=== PATIENT | male | born 1950 | race Caucasian/White ===

== ENCOUNTER 2018-08-22 09:44 | Inpatient (IN) | payer MEDICARE ==
[~2018-08-22] VITALS: Ht 172.7 cm; Wt 106.0 kg
[2018-08-22] MEDS ORDERED: normal saline 1000ml 1,000 ML IV ONE (10:54)
[2018-08-22] MEDS ORDERED: ondansetron/PF 4mg/2ml inj IV ONE ×2 (10:55→16:15)
[2018-08-22] MEDS: diatr meglu/diatrizoate 30ml oral sol.-(3 dose) bottle PO SCH ×3 (10:55→12:25)
[2018-08-22] MEDS ORDERED: normal saline 1000ML IV soln IVB ONE ×2 (10:55→13:20)
[2018-08-22] MEDS ORDERED: LIDOcaine 2% 10ml TOPICAL JELLY (Urojet) MM ONE (11:20)
[2018-08-22 11:23] LABS: BASOPHILS # (AUTO) 0.1 X10'3 (0-0.2); BASOPHILS % (AUTO) 0.5 % (0-1); EOSINOPHILS # (AUTO) 0.1 X10'3 (0-0.9); EOSINOPHILS % (AUTO) 0.9 % (0-6); HEMATOCRIT 43.3 % (42.0-52.0); HEMOGLOBIN 14.6 g/dl (14.0-17.9); LYMPHOCYTES # (AUTO) 1.1 X10'3 (1.1-4.8); LYMPHOCYTES % (AUTO) 7.4 % (21-51); MEAN CORPUSCULAR HEMOGLOBIN 29.5 PG (27.0-31.0); MEAN CORPUSCULAR HGB CONC 33.7 g/dL (33.0-36.5); MEAN CORPUSCULAR VOLUME 87.5 FL (78-98); MEAN PLATELET VOLUME 9.3 FL (7.4-10.4); MONOCYTES # (AUTO) 0.8 X10'3 (0-0.9); MONOCYTES % (AUTO) 5.6 % (2-12); NEUTROPHILS # (AUTO) 12.9 X10'3 (1.8-7.7); NEUTROPHILS % (AUTO) 85.6 % (42-75); PLATELET COUNT 225 X10'3 (140-440); RED BLOOD COUNT 4.95 X10'6 (4.70-6.10); RED CELL DISTRIBUTION WIDTH 14.7 % (11.5-14.5); WHITE BLOOD COUNT 15.1 X10'3 (4.5-11.0)
[2018-08-22] MEDS: morphine 2 MG/ML inj. syringe IV PRN ×2 (11:31→22:58)
[2018-08-22 11:46] LABS: PLATELET ESTIMATE NORMAL; TOTAL CELLS COUNTED 100
[2018-08-22 11:49] LABS: INR 1.1 INR; PARTIAL THROMBOPLASTIN TIME 30 SECONDS (22-32)
[2018-08-22 11:50] LABS: ALANINE AMINOTRANSFERASE 26 U/L (12-78); ALBUMIN 3.9 G/DL (3.4-5.0); ALBUMIN/GLOBULIN RATIO 1.1 (1.1-1.5); ALKALINE PHOSPHATASE 109 IU/L (46-116); ANION GAP 12 (8-16); ASPARTATE AMINO TRANSFERASE 21 U/L (10-37); BILIRUBIN,TOTAL 0.7 MG/DL (0.1-1.0); BLOOD UREA NITROGEN 22 MG/DL (7-18); CALCIUM 9.1 MG/DL (8.5-10.1); CHLORIDE 105 MMOL/L (99-107); CREATININE 1.16 MG/DL (0.60-1.10); GLUCOSE 135 MG/DL (70-104); LIPASE 64 U/L (73-393); MAGNESIUM 1.8 MG/DL (1.5-2.4); POTASSIUM 3.8 MMOL/L (3.5-5.1); SODIUM 139 MMOL/L (135-145); TOTAL CARBON DIOXIDE 22.3 MMOL/L (24-32); TOTAL PROTEIN 7.5 G/DL (6.4-8.2); eGFR 62 ML/MIN
[2018-08-22] MEDS ORDERED: iohexol 300mg/ml 100ml inj. ONE (12:16)
[2018-08-22] MEDS ORDERED: piperacillin/tazo 3.375gm/50ml 50 ML IV ONE (13:30)
[2018-08-22 13:44] LABS: COLOR,URINE YELLOW (Yellow); GLUCOSE, URINE NEGATIVE (Neg); KETONES,URINE 40 mg/dl (Neg); LEUKOCYTE ESTERASE ,URINE NEGATIVE (Neg); NITRITES, URINE NEGATIVE (Neg); OCCULT BLOOD,URINE NEGATIVE (Neg); PH,URINE 5.5 (4.8-8.0); PROTEIN,URINE TRACE mg/dl (Neg)
[2018-08-22 13:45] LABS: CLARITY,URINE CLEAR (Clear); UA COLLECTION TYPE CLN CATCH MIDSTREAM
[2018-08-22 13:54] LABS: BACTERIA,URINE FEW /HPF (Neg); RBC,URINE 0-2 /HPF (0-2); SQUAMOUS EPITHELIAL CELL,UR FEW /LPF (FEW); WBC,URINE 0-4 /HPF (0-4)
[2018-08-22] MEDS: normal saline 1000ml 1,000 ML IV SCH ×3 (13:58→23:58)
[2018-08-22] MEDS ORDERED: ondansetron/PF 4mg/2ml inj IV PRN (14:00)
[2018-08-22] MEDS ORDERED: HYDROcodone/acetaminophen 10/325mg tab PO PRN (14:00)
[2018-08-22] MEDS ORDERED: acetaminophen 325mg tablet PO PRN ×2 (14:00)
[2018-08-22] MEDS ORDERED: mag hydrox/Alum hydrox/simeth 30ml oral suspension PO PRN (14:00)
[2018-08-22] MEDS ORDERED: morphine 2 MG/ML inj. syringe IV PRN ×2 (14:00)
[2018-08-22] MEDS ORDERED: magnesium hydroxide 30ml (MOM) UD suspension PO PRN (14:00)
[2018-08-22] MEDS ORDERED: HYDROcodone/acetaminophen 5mg/325mg tablet PO PRN (14:00)
[2018-08-22] MEDS ORDERED: MOME13HF INH (15:41)
[2018-08-22] MEDS ORDERED: ASPI81TA52 PO (15:41)
[2018-08-22] MEDS ORDERED: FLUT15.815 (15:41)
[2018-08-22] MEDS ORDERED: MELA3TAB PO (15:41)
[2018-08-22] MEDS ORDERED: AMLO5TAB PO (15:41)
[2018-08-22] MEDS ORDERED: LORA-641 PO (15:41)
[2018-08-22] MEDS ORDERED: IBUP-1984 PO (15:41)
[2018-08-22] MEDS ORDERED: LABE100T5 PO (15:41)
[2018-08-22] MEDS ORDERED: GABA-532 PO (15:41)
[2018-08-22] MEDS ORDERED: metoclopramide 5 mg/ml inj IV PRN (16:15)
[2018-08-22] MEDS ORDERED: budesonide 0.5mg/2ml UD nebule IH PRN (16:15)
--- NOTE | 2018-08-22 17:55 | NUR ---
Pt received to room 345B via . Oriented to room. NG to LIS. Report given to Mary DAVIDSON.
--- NOTE | 2018-08-22 19:10 | NUR ---
DR. Bradshaw paged regarding Klv210/92. MD is garcia orders to resume home BP medications. Give 5 mg PO norvasc now, and to resume home night medications. Will continue with care.
[2018-08-22] MEDS ORDERED: amLODIPine 5mg tablet PO ONE (19:30)
[2018-08-22 20:00] VITALS: BP 201/92
[2018-08-22] MEDS: gabapentin 300mg capsule PO SCH (20:00)
[2018-08-22] MEDS: ibuprofen tablet 400 MG TABLET PO SCH (20:00)
[2018-08-22] MEDS: Melatonin 3mg tablet PO SCH (20:34)
[2018-08-22] MEDS ORDERED: labetalol 100mg tablet PO SCH (21:00)
[2018-08-22 21:30] VITALS: BP 173/85
[2018-08-23] VITALS: BP 198/89
[2018-08-23 02:00] VITALS: BP 149/61
--- NOTE | 2018-08-23 02:00 | NUR ---
Current BP-149/61 hr-72
[2018-08-23 05:00] LABS: BASOPHILS # (AUTO) 0.1 X10'3 (0-0.2); BASOPHILS % (AUTO) 0.5 % (0-1); EOSINOPHILS % (AUTO) 0.4 % (0-6); HEMATOCRIT 40.5 % (42.0-52.0); HEMOGLOBIN 13.7 g/dl (14.0-17.9); LYMPHOCYTES # (AUTO) 1.6 X10'3 (1.1-4.8); LYMPHOCYTES % (AUTO) 13.8 % (21-51); MEAN CORPUSCULAR HGB CONC 33.7 g/dL (33.0-36.5); MEAN CORPUSCULAR VOLUME 86.2 FL (78-98); MEAN PLATELET VOLUME 9.8 FL (7.4-10.4); MONOCYTES % (AUTO) 8.8 % (2-12); NEUTROPHILS # (AUTO) 8.9 X10'3 (1.8-7.7); NEUTROPHILS % (AUTO) 76.5 % (42-75); PLATELET COUNT 231 X10'3 (140-440); RED CELL DISTRIBUTION WIDTH 14.7 % (11.5-14.5); WHITE BLOOD COUNT 11.6 X10'3 (4.5-11.0)
[2018-08-23 05:07] LABS: ALBUMIN 3.4 G/DL (3.4-5.0); ANION GAP 9 (8-16); BLOOD UREA NITROGEN 18 MG/DL (7-18); BUN/CREATININE RATIO 16.2 (5.4-32.0); CALCIUM 8.4 MG/DL (8.5-10.1); CHLORIDE 107 MMOL/L (99-107); CREATININE 1.11 MG/DL (0.60-1.10); GLUCOSE 117 MG/DL (70-104); POTASSIUM 3.3 MMOL/L (3.5-5.1); SODIUM 142 MMOL/L (135-145); TOTAL CARBON DIOXIDE 26.4 MMOL/L (24-32); eGFR 65 ML/MIN
--- NOTE | 2018-08-23 07:01 | NUR ---
Problems reprioritized. Patient report given, questions answered & plan of care reviewed with Stefania DAVIDSON.
[2018-08-23 07:36] VITALS: BP 148/62
[2018-08-23] MEDS ORDERED: fluticasone nasal spray 16GM bottle NS PRN (08:00)
[2018-08-23] MEDS: normal saline 1000ml 1,000 ML IV SCH ×2 (08:03→21:18)
[2018-08-23] MEDS: amLODIPine 5mg tablet PO SCH (08:03)
[2018-08-23] MEDS: loratadine 10mg tablet PO SCH (08:03)
[2018-08-23] MEDS: aspirin 81mg tablet.DR PO SCH (08:03)
[2018-08-23] MEDS: gabapentin 300mg capsule PO SCH ×2 (08:03→20:00)
[2018-08-23] MEDS: ibuprofen tablet 400 MG TABLET PO SCH ×2 (08:03→20:00)
[2018-08-23 11:00] VITALS: BP 147/87
[2018-08-23] MEDS: diatr meglu/diatrizoate 30ml oral sol.-(3 dose) bottle PO SCH ×3 (11:22→17:18)
[2018-08-23] MEDS: labetalol 100mg tablet PO SCH ×2 (13:25→21:18)
--- NOTE | 2018-08-23 17:18 | NUR ---
WILL START ZOSYN WHEN PT GETS BACK FROM CT
[2018-08-23] MEDS ORDERED: magnesium Cl slow-release 64mg tablet PO PRN (17:45)
[2018-08-23] MEDS ORDERED: potassium Cl 40MEQ/NS 500ml 500 ML IV PRN ×2 (17:45)
[2018-08-23] MEDS ORDERED: potassium Cl 20 mEq SR tablet PO PRN ×2 (17:45)
[2018-08-23] MEDS ORDERED: magnesium 4gm in 100ml NS 100 ML IV PRN (17:45)
--- NOTE | 2018-08-23 18:04 | NUR ---
PT IS BACK FROM PROCEDURE BUT ZOSYN IS NOT READY. CALLED PHARMACY THEY WILL GET IT READY. IT IS CURRENTLY 1800
--- NOTE | 2018-08-23 18:30 | NUR ---
Patient in room [facility] 345. I have received report from STUART Aguiar and had the opportunity to ask questions and assume patient care. Addendum: 08/23/18 at 1933 by Evert Candelario RN Amended: Links added.
[2018-08-23] MEDS: piperacillin/tazo 3.375gm/50ml 50 ML IV SCH ×2 (18:55→23:59)
[2018-08-23 19:17] VITALS: BP 121/77
[2018-08-23] MEDS: Melatonin 3mg tablet PO SCH (21:00)
[2018-08-24 00:36] VITALS: BP 171/68
[2018-08-24 05:44] LABS: BASOPHILS % (AUTO) 0.3 % (0-1); EOSINOPHILS % (AUTO) 0.2 % (0-6); HEMATOCRIT 38.6 % (42.0-52.0); LYMPHOCYTES # (AUTO) 1.7 X10'3 (1.1-4.8); LYMPHOCYTES % (AUTO) 12.6 % (21-51); MEAN CORPUSCULAR HEMOGLOBIN 29.2 PG (27.0-31.0); MEAN CORPUSCULAR HGB CONC 33.8 g/dL (33.0-36.5); MEAN CORPUSCULAR VOLUME 86.6 FL (78-98); MEAN PLATELET VOLUME 9.6 FL (7.4-10.4); MONOCYTES # (AUTO) 1.1 X10'3 (0-0.9); MONOCYTES % (AUTO) 8.4 % (2-12); NEUTROPHILS # (AUTO) 10.6 X10'3 (1.8-7.7); NEUTROPHILS % (AUTO) 78.5 % (42-75); PLATELET COUNT 234 X10'3 (140-440); RED BLOOD COUNT 4.45 X10'6 (4.70-6.10); RED CELL DISTRIBUTION WIDTH 14.4 % (11.5-14.5); WHITE BLOOD COUNT 13.6 X10'3 (4.5-11.0)
[2018-08-24 05:46] LABS: ALBUMIN 3.2 G/DL (3.4-5.0); ANION GAP 10 (8-16); BLOOD UREA NITROGEN 25 MG/DL (7-18); BUN/CREATININE RATIO 21.7 (5.4-32.0); CALCIUM 8.6 MG/DL (8.5-10.1); CHLORIDE 108 MMOL/L (99-107); CREATININE 1.15 MG/DL (0.60-1.10); GLUCOSE 116 MG/DL (70-104); POTASSIUM 3.6 MMOL/L (3.5-5.1); SODIUM 144 MMOL/L (135-145); TOTAL CARBON DIOXIDE 25.8 MMOL/L (24-32); eGFR 63 ML/MIN
[2018-08-24] MEDS: normal saline 1000ml 1,000 ML IV SCH ×3 (05:58→20:41)
--- NOTE | 2018-08-24 06:22 | NUR ---
Patient in room [facility] 345. I have received report from STUART Sebastian and had the opportunity to ask questions and assume patient care.
--- NOTE | 2018-08-24 06:25 | NUR ---
Problems reprioritized. Patient report given, questions answered & plan of care reviewed with STUART Love. Addendum: 08/24/18 at 0625 by Evert Candelario RN Amended: Links added.
[2018-08-24 07:00] VITALS: BP 207/90
[2018-08-24] MEDS: ibuprofen tablet 400 MG TABLET PO SCH (07:09)
[2018-08-24] MEDS: gabapentin 300mg capsule PO SCH ×2 (07:09→20:30)
[2018-08-24] MEDS: labetalol 100mg tablet PO SCH ×3 (07:09→20:30)
[2018-08-24] MEDS: amLODIPine 5mg tablet PO SCH (07:09)
[2018-08-24] MEDS: loratadine 10mg tablet PO SCH (07:09)
[2018-08-24] MEDS: piperacillin/tazo 3.375gm/50ml 50 ML IV SCH ×2 (07:10→17:08)
--- NOTE | 2018-08-24 08:54 | NUR ---
Dr. Cruz states pt may take ice and popsicles by mouth, and suggests hospitalist request a GI consult.
[2018-08-24] MEDS ORDERED: PEG 3350/Na sulf,bicarb,Cl/KCl oral sol 4 liter bottle PO ONE (09:50)
[2018-08-24 11:00] VITALS: BP 160/91
--- NOTE | 2018-08-24 18:45 | NUR ---
Patient in room [facility] 345. I have received report from STUART Love and had the opportunity to ask questions and assume patient care. Addendum: 08/24/18 at 2020 by Evert Candelario RN Amended: Links added.
[2018-08-24 19:00] VITALS: BP 200/81
--- NOTE | 2018-08-24 19:07 | NUR ---
Problems reprioritized. Patient report given, questions answered & plan of care reviewed with STUART Sebastian.
[2018-08-24] MEDS ORDERED: mineral oil 133ml enema RC PRN (19:50)
[2018-08-24] MEDS: lactobacillus rhamnosus 10,000 MMU CELLS/CAPSULE PO SCH (20:30)
--- NOTE | 2018-08-24 20:30 | NUR ---
Pt laying on left side for enema, started coughing and vomiting large amt light brown emesis, pt sat up, hooked to suction, 500ml light brown drainage in cannister. pt states has nasl drip and starts coughing whenever laying on left side. cool compress given, and pt states relief from nausea no meds required. pt layed on right side and enema given. remains hooked to suction. b/p pills found in emesis and waisted. Addendum: 08/24/18 at 0 by Evert Candleario RN Amended: Links added.
[2018-08-24] MEDS: Melatonin 3mg tablet PO SCH (21:00)
[2018-08-24] MEDS: hydrALAZINE 20mg/ml inj. IV PRN (22:43)
[2018-08-24 23:00] VITALS: BP 182/84
[2018-08-25] VITALS (7 sets, daily range): BP systolic 159–195; BP diastolic 70–98
[2018-08-25] MEDS: piperacillin/tazo 3.375gm/50ml 50 ML IV SCH ×4 (00:08→23:33)
[2018-08-25 04:43] LABS: BASOPHILS % (AUTO) 0.3 % (0-1); EOSINOPHILS % (AUTO) 0.2 % (0-6); HEMATOCRIT 42.4 % (42.0-52.0); HEMOGLOBIN 14.4 g/dl (14.0-17.9); LYMPHOCYTES # (AUTO) 1.5 X10'3 (1.1-4.8); LYMPHOCYTES % (AUTO) 9.1 % (21-51); MEAN CORPUSCULAR HEMOGLOBIN 29.1 PG (27.0-31.0); MEAN CORPUSCULAR HGB CONC 33.9 g/dL (33.0-36.5); MEAN CORPUSCULAR VOLUME 85.7 FL (78-98); MEAN PLATELET VOLUME 9.5 FL (7.4-10.4); MONOCYTES # (AUTO) 1.3 X10'3 (0-0.9); NEUTROPHILS # (AUTO) 13.5 X10'3 (1.8-7.7); NEUTROPHILS % (AUTO) 82.4 % (42-75); PLATELET COUNT 282 X10'3 (140-440); RED BLOOD COUNT 4.94 X10'6 (4.70-6.10); RED CELL DISTRIBUTION WIDTH 14.2 % (11.5-14.5); WHITE BLOOD COUNT 16.4 X10'3 (4.5-11.0)
[2018-08-25 04:56] LABS: ALBUMIN 3.5 G/DL (3.4-5.0); ANION GAP 9 (8-16); BLOOD UREA NITROGEN 32 MG/DL (7-18); BUN/CREATININE RATIO 26.9 (5.4-32.0); CALCIUM 8.8 MG/DL (8.5-10.1); CHLORIDE 108 MMOL/L (99-107); CREATININE 1.19 MG/DL (0.60-1.10); GLUCOSE 133 MG/DL (70-104); POTASSIUM 3.9 MMOL/L (3.5-5.1); SODIUM 143 MMOL/L (135-145); TOTAL CARBON DIOXIDE 25.9 MMOL/L (24-32); eGFR 60 ML/MIN
--- NOTE | 2018-08-25 06:06 | NUR ---
Problems reprioritized. Patient report given, questions answered & plan of care reviewed with STUART Love. Addendum: 08/25/18 at 0607 by Evert Candelario RN Amended: Links added.
--- NOTE | 2018-08-25 06:32 | NUR ---
Patient in room [facility] 345. I have received report from STUART Sebastian and had the opportunity to ask questions and assume patient care.
[2018-08-25] MEDS: aspirin 81mg tablet.DR PO SCH (07:14)
[2018-08-25] MEDS: labetalol 100mg tablet PO SCH ×2 (07:14→20:28)
[2018-08-25] MEDS: gabapentin 300mg capsule PO SCH ×2 (07:14→20:27)
[2018-08-25] MEDS: amLODIPine 5mg tablet PO SCH (07:14)
[2018-08-25] MEDS: loratadine 10mg tablet PO SCH (07:15)
[2018-08-25] MEDS: lactobacillus rhamnosus 10,000 MMU CELLS/CAPSULE PO SCH ×2 (07:15→20:27)
[2018-08-25] MEDS: enoxaparin 40mg/0.4ml syringe SUBCUT SCH (07:15)
[2018-08-25] MEDS: hydrALAZINE 20mg/ml inj. IV PRN ×2 (11:23→21:55)
[2018-08-25] MEDS: normal saline 1000ml 1,000 ML IV SCH ×2 (14:15→23:59)
[2018-08-25] MEDS ORDERED: amLODIPine 5mg tablet PO ONE (17:30)
--- NOTE | 2018-08-25 18:35 | NUR ---
Problems reprioritized. Patient report given, questions answered & plan of care reviewed with STUART Diaz.
--- NOTE | 2018-08-25 18:36 | NUR ---
Patient in room [facility] 345. I have received report from DAVID DAVIDSON. and had the opportunity to ask questions and assume patient care.
--- NOTE | 2018-08-25 20:00 | NUR ---
AFTER TAKING A CUP OF GOLYTELY, PT. STATES THAT HE IS FULL AND DOES NOT WANT IT ANYMORE.
[2018-08-25] MEDS: Melatonin 3mg tablet PO SCH (21:54)
--- NOTE | 2018-08-25 23:00 | NUR ---
NGT CONNECTED TO [facility] PER REQUEST.
[2018-08-26] VITALS: BP 187/84
[2018-08-26] MEDS: hydrALAZINE 20mg/ml inj. IV PRN (03:40)
[2018-08-26 04:00] VITALS: BP 182/81
[2018-08-26 05:16] LABS: BASOPHILS # (AUTO) 0.1 X10'3 (0-0.2); BASOPHILS % (AUTO) 0.3 % (0-1); EOSINOPHILS # (AUTO) 0.1 X10'3 (0-0.9); EOSINOPHILS % (AUTO) 0.6 % (0-6); HEMOGLOBIN 14.5 g/dl (14.0-17.9); LYMPHOCYTES # (AUTO) 1.7 X10'3 (1.1-4.8); LYMPHOCYTES % (AUTO) 9.8 % (21-51); MEAN CORPUSCULAR HEMOGLOBIN 29.4 PG (27.0-31.0); MEAN CORPUSCULAR HGB CONC 33.7 g/dL (33.0-36.5); MEAN CORPUSCULAR VOLUME 87.4 FL (78-98); MONOCYTES # (AUTO) 1.5 X10'3 (0-0.9); MONOCYTES % (AUTO) 8.3 % (2-12); NEUTROPHILS # (AUTO) 14.3 X10'3 (1.8-7.7); PLATELET COUNT 304 X10'3 (140-440); RED BLOOD COUNT 4.92 X10'6 (4.70-6.10); RED CELL DISTRIBUTION WIDTH 14.9 % (11.5-14.5); WHITE BLOOD COUNT 17.7 X10'3 (4.5-11.0)
[2018-08-26 05:20] LABS: ALBUMIN 3.4 G/DL (3.4-5.0); ANION GAP 14 (8-16); BLOOD UREA NITROGEN 37 MG/DL (7-18); BUN/CREATININE RATIO 32.2 (5.4-32.0); CALCIUM 9.1 MG/DL (8.5-10.1); CHLORIDE 108 MMOL/L (99-107); CREATININE 1.15 MG/DL (0.60-1.10); GLUCOSE 125 MG/DL (70-104); MAGNESIUM 2.1 MG/DL (1.5-2.4); POTASSIUM 3.6 MMOL/L (3.5-5.1); SODIUM 145 MMOL/L (135-145); TOTAL CARBON DIOXIDE 22.6 MMOL/L (24-32); eGFR 63 ML/MIN
--- NOTE | 2018-08-26 06:10 | NUR ---
Patient in room [facility] 345. I have received report from Joe DAVIDSON and had the opportunity to ask questions and assume patient care.
--- NOTE | 2018-08-26 06:30 | NUR ---
Problems reprioritized. Patient report given, questions answered & plan of care reviewed with CARMINE DAVIDSON.
[2018-08-26 07:15] VITALS: BP 170/83
--- NOTE | 2018-08-26 08:10 | NUR ---
Dr. De Leon aware of high BP of 170/83. to input new orders.
[2018-08-26] MEDS: gabapentin 300mg capsule PO SCH ×2 (08:36→20:37)
[2018-08-26] MEDS: piperacillin/tazo 3.375gm/50ml 50 ML IV SCH ×3 (08:36→23:55)
[2018-08-26] MEDS: loratadine 10mg tablet PO SCH (08:36)
[2018-08-26] MEDS: lactobacillus rhamnosus 10,000 MMU CELLS/CAPSULE PO SCH ×2 (08:36→20:37)
[2018-08-26] MEDS: normal saline 1000ml 1,000 ML IV SCH ×2 (08:36→18:24)
[2018-08-26] MEDS: enoxaparin 40mg/0.4ml syringe SUBCUT SCH (08:36)
[2018-08-26] MEDS ORDERED: enalaprilat dihydrate 2.5mg/2ml vial IV SCH (08:40)
[2018-08-26] MEDS: amLODIPine 5mg tablet PO SCH (09:49)
[2018-08-26] MEDS: labetalol 100mg tablet PO SCH ×2 (09:49→20:36)
[2018-08-26 10:58] VITALS: BP 134/60
--- NOTE | 2018-08-26 11:14 | NUR ---
Pt requested hardcopy of CT scan w/ contrast performed on 08/24/18, before his planned surgery by Dr. Cruz, which may occur this weekend. Pt signed records release for Medical Information, however [facility] is closed. Nursing Shell Sorter stated the pt may only obtain a printed report from [facility] (Tuesday - Tuesday), or his doctor. Pt is aware, and is awaiting Dr. Cruz to round today. Pt's is at the bedside.
[2018-08-26 11:21] VITALS: BP 147/72
[2018-08-26] MEDS: enalaprilat dihydrate 2.5mg/2ml vial IV SCH ×2 (13:46→20:38)
--- NOTE | 2018-08-26 18:27 | NUR ---
Problems reprioritized. Patient report given, questions answered & plan of care reviewed with Joe DAVIDSON.
--- NOTE | 2018-08-26 18:28 | NUR ---
Patient in room [facility] 345. I have received report from CARMINE DAVIDSON and had the opportunity to ask questions and assume patient care.
[2018-08-26 19:00] VITALS: BP 166/81
[2018-08-26] MEDS: Melatonin 3mg tablet PO SCH (21:10)
[2018-08-27] VITALS (16 sets, daily range): BP systolic 90–170; BP diastolic 44–110
[2018-08-27] MEDS: enalaprilat dihydrate 2.5mg/2ml vial IV SCH ×4 (02:21→20:00)
[2018-08-27] MEDS: normal saline 1000ml 1,000 ML IV SCH ×3 (04:11→23:58)
[2018-08-27 04:32] LABS: BASOPHILS # (AUTO) 0.1 X10'3 (0-0.2); BASOPHILS % (AUTO) 0.4 % (0-1); EOSINOPHILS # (AUTO) 0.2 X10'3 (0-0.9); EOSINOPHILS % (AUTO) 1.4 % (0-6); HEMATOCRIT 41.6 % (42.0-52.0); HEMOGLOBIN 13.9 g/dl (14.0-17.9); LYMPHOCYTES # (AUTO) 2.2 X10'3 (1.1-4.8); LYMPHOCYTES % (AUTO) 14.8 % (21-51); MEAN CORPUSCULAR HEMOGLOBIN 29.2 PG (27.0-31.0); MEAN CORPUSCULAR HGB CONC 33.4 g/dL (33.0-36.5); MEAN CORPUSCULAR VOLUME 87.4 FL (78-98); MEAN PLATELET VOLUME 10.1 FL (7.4-10.4); MONOCYTES # (AUTO) 1.6 X10'3 (0-0.9); MONOCYTES % (AUTO) 10.5 % (2-12); NEUTROPHILS # (AUTO) 11.1 X10'3 (1.8-7.7); NEUTROPHILS % (AUTO) 72.9 % (42-75); PLATELET COUNT 289 X10'3 (140-440); RED BLOOD COUNT 4.76 X10'6 (4.70-6.10); RED CELL DISTRIBUTION WIDTH 14.7 % (11.5-14.5); WHITE BLOOD COUNT 15.2 X10'3 (4.5-11.0)
[2018-08-27 04:42] LABS: ALBUMIN 3.3 G/DL (3.4-5.0); ANION GAP 7 (8-16); BLOOD UREA NITROGEN 38 MG/DL (7-18); BUN/CREATININE RATIO 28.6 (5.4-32.0); CALCIUM 9.2 MG/DL (8.5-10.1); CHLORIDE 109 MMOL/L (99-107); CREATININE 1.33 MG/DL (0.60-1.10); GLUCOSE 104 MG/DL (70-104); MAGNESIUM 2.2 MG/DL (1.5-2.4); POTASSIUM 3.4 MMOL/L (3.5-5.1); SODIUM 146 MMOL/L (135-145); TOTAL CARBON DIOXIDE 29.9 MMOL/L (24-32); eGFR 53 ML/MIN
[2018-08-27 04:55] LABS: INR 1.1 INR; PARTIAL THROMBOPLASTIN TIME 28 SECONDS (22-32)
[2018-08-27 04:59] LABS: ALANINE AMINOTRANSFERASE 34 U/L (12-78); ALBUMIN 3.4 G/DL (3.4-5.0); ALBUMIN/GLOBULIN RATIO 1.1 (1.1-1.5); ALKALINE PHOSPHATASE 66 IU/L (46-116); ANION GAP 10 (8-16); ASPARTATE AMINO TRANSFERASE 27 U/L (10-37); BILIRUBIN,TOTAL 0.9 MG/DL (0.1-1.0); BLOOD UREA NITROGEN 39 MG/DL (7-18); BUN/CREATININE RATIO 29.3 (5.4-32.0); CHLORIDE 108 MMOL/L (99-107); CREATININE 1.33 MG/DL (0.60-1.10); GLUCOSE 101 MG/DL (70-104); POTASSIUM 3.4 MMOL/L (3.5-5.1); SODIUM 147 MMOL/L (135-145); TOTAL CARBON DIOXIDE 28.7 MMOL/L (24-32); TOTAL PROTEIN 6.6 G/DL (6.4-8.2); eGFR 53 ML/MIN
[2018-08-27] MEDS: enoxaparin 40mg/0.4ml syringe SUBCUT SCH (06:23)
--- NOTE | 2018-08-27 06:50 | NUR ---
Problems reprioritized. Patient report given, questions answered & plan of care reviewed with UZIEL DAVIDSON.
[2018-08-27] MEDS: lactobacillus rhamnosus 10,000 MMU CELLS/CAPSULE PO SCH ×2 (08:07→20:55)
[2018-08-27] MEDS: loratadine 10mg tablet PO SCH (08:07)
[2018-08-27] MEDS: amLODIPine 5mg tablet PO SCH (08:07)
[2018-08-27] MEDS: gabapentin 300mg capsule PO SCH ×2 (08:07→20:55)
[2018-08-27] MEDS: labetalol 100mg tablet PO SCH ×2 (08:07→20:55)
[2018-08-27] MEDS: piperacillin/tazo 3.375gm/50ml 50 ML IV SCH ×2 (08:07→16:00)
[2018-08-27] MEDS ORDERED: potassium Cl 20 mEq SR tablet PO PRN (09:55)
[2018-08-27] MEDS ORDERED: potassium Cl 40MEQ/NS 500ml 500 ML IV PRN ×2 (09:55)
[2018-08-27] MEDS ORDERED: fentaNYL /PF 50mcg/ml 5ml ampule ONE (10:06)
[2018-08-27] MEDS ORDERED: rocuronium 10mg/ml inj IV ONE ×2 (10:07→10:21)
[2018-08-27] MEDS ORDERED: LIDOcaine 2% (20mg/ml) 5ml vial ONE (10:07)
[2018-08-27] MEDS ORDERED: propofol inj 20 ML IV ONE (10:07)
[2018-08-27] MEDS ORDERED: sevoflurane 250ml liquid IH ONE (10:21)
[2018-08-27] MEDS ORDERED: dexamethasone sod phosphate 10mg/ml inj ONE (10:21)
[2018-08-27] MEDS ORDERED: ePHEDrine 50MG/ML INJ. ONE (10:21)
[2018-08-27] MEDS ORDERED: cefotetan 2gm/isosm dext IVPB 50 ML IV ONE (10:33)
[2018-08-27] MEDS ORDERED: ringers solution, lacted 1,000 ML IV SCH (11:21)
[2018-08-27] MEDS ORDERED: ondansetron/PF 4mg/2ml inj IV PRN (11:25)
[2018-08-27] MEDS ORDERED: HYDROmorphone inj. 0.5 MG/0.5 ML DISP.SYRIN IV PRN ×2 (11:25)
[2018-08-27] MEDS ORDERED: morphine 4 MG/ML inj SYRINge IV PRN (11:25)
--- NOTE | 2018-08-27 11:26 | NUR ---
PT TO TRANSFER TO ICU POST SURGERY. GAVE REPORT TO RECEIVING RN IN ICU.
[2018-08-27] MEDS: albuterol 2.5 MG/3 ML nebule NEB PRN ×2 (12:21→23:05)
--- NOTE | 2018-08-27 12:23 | NUR ---
Initial: Pt NPO today for ex lap r/t worsening ischemic colitis and constipation. Per MD note pre-op ileostomy placement pending but OR note says colon resection w/ colostomy. Will monitor for OR notes for exact resection and diet ed needs post-op. Pt LBM 4/5 prior to admit w/ no gas and abdominal distention. CT revealed possible bowel infarction and moderate sized umbilical hernia w/ incarcerated visceral fat w/o obstruction. NG in place 2650ml output past 24hrs. Will monitor for additional protein and diet ed needs post-op. Rec: 1. advance diet per MD to low-residue 2. colostomy vs ileostomy diet ed once clinically stable prior to d/c; pending surgical summary 3. wt per rx Addendum: 08/27/18 at [address] Amended: Links added.
[2018-08-27] MEDS ORDERED: HYDROmorphone/NS 1 mg/ml CADD 50 ML IV SCH (12:30)
--- NOTE | 2018-08-27 12:30 | NUR ---
RECEIVED PATIENT FROM or TO RECOVER. PT IS AWAKE, ALERT AND FOLLOWS ALL COMMANDS.ABD. DRESSING IS WITH PINK DRAINAGE AND SMALL AMT OF PINK FLUID IN OSTOMY BAG. DILAUDID CADD IS STARTED AND ART THERAPIST EDUCATION GIVEN.
[2018-08-27] MEDS: HYDROmorphone/NS 1 mg/ml CADD 50 ML IV SCH ×6 (13:00→23:00)
--- NOTE | 2018-08-27 15:00 | NUR ---
SPOKE WITH MARCOS ROBISON NP,ABOUT k REPLACEMENT. SHE SAID TO HOLD OFF AT THIS TIME./
[2018-08-27] MEDS ORDERED: glycopyrrolate 0.2mg/ml inj ONE (15:12)
[2018-08-27] MEDS ORDERED: neostigmine methylsulfate 1 MG/ML 10ml vial ONE (15:12)
[2018-08-27] MEDS ORDERED: ondansetron/PF 4mg/2ml inj ONE (15:12)
--- NOTE | 2018-08-27 19:30 | NUR ---
I have received report and assumed care of pt, pt resting in bed rise and fall of chest cavity equile and symmetrical, at bedside, chavis catheter to gravity. 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
[2018-08-27] MEDS: Melatonin 3mg tablet PO SCH (20:55)
[2018-08-28] VITALS (23 sets, daily range): BP systolic 94–187; BP diastolic 37–79
[2018-08-28] MEDS: piperacillin/tazo 3.375gm/50ml 50 ML IV SCH ×3 (00:22→17:55)
[2018-08-28] MEDS: HYDROmorphone/NS 1 mg/ml CADD 50 ML IV SCH ×12 (00:48→23:00)
[2018-08-28] MEDS: enalaprilat dihydrate 2.5mg/2ml vial IV SCH ×3 (02:00→14:00)
[2018-08-28 05:25] LABS: BASOPHILS % (AUTO) 0.1 % (0-1); EOSINOPHILS % (AUTO) 0 % (0-6); HEMATOCRIT 38.6 % (42.0-52.0); HEMOGLOBIN 12.9 g/dl (14.0-17.9); LYMPHOCYTES % (AUTO) 6.4 % (21-51); MEAN CORPUSCULAR HEMOGLOBIN 29.4 PG (27.0-31.0); MEAN CORPUSCULAR HGB CONC 33.4 g/dL (33.0-36.5); MEAN PLATELET VOLUME 9.5 FL (7.4-10.4); MONOCYTES # (AUTO) 1.2 X10'3 (0-0.9); MONOCYTES % (AUTO) 7.8 % (2-12); NEUTROPHILS # (AUTO) 13.5 X10'3 (1.8-7.7); NEUTROPHILS % (AUTO) 85.7 % (42-75); PLATELET COUNT 268 X10'3 (140-440); RED BLOOD COUNT 4.39 X10'6 (4.70-6.10); WHITE BLOOD COUNT 15.7 X10'3 (4.5-11.0)
[2018-08-28 05:59] LABS: ALBUMIN 2.7 G/DL (3.4-5.0); ANION GAP 12 (8-16); BLOOD UREA NITROGEN 42 MG/DL (7-18); BUN/CREATININE RATIO 27.5 (5.4-32.0); CALCIUM 8.1 MG/DL (8.5-10.1); CHLORIDE 111 MMOL/L (99-107); CREATININE 1.53 MG/DL (0.60-1.10); GLUCOSE 127 MG/DL (70-104); POTASSIUM 3.5 MMOL/L (3.5-5.1); SODIUM 149 MMOL/L (135-145); TOTAL CARBON DIOXIDE 25.6 MMOL/L (24-32); eGFR 45 ML/MIN
[2018-08-28 07:45] LABS: TOTAL CELLS COUNTED 100
[2018-08-28 07:46] LABS: PLATELET ESTIMATE NORMAL
[2018-08-28] MEDS: albuterol 2.5 MG/3 ML nebule NEB PRN ×2 (08:31→14:21)
[2018-08-28] MEDS: labetalol 100mg tablet PO SCH ×2 (08:55→20:52)
[2018-08-28] MEDS: gabapentin 300mg capsule PO SCH ×2 (08:55→20:53)
[2018-08-28] MEDS: aspirin 81mg tablet.DR PO SCH (08:55)
[2018-08-28] MEDS: lactobacillus rhamnosus 10,000 MMU CELLS/CAPSULE PO SCH ×2 (08:57→20:53)
[2018-08-28] MEDS: loratadine 10mg tablet PO SCH (08:57)
[2018-08-28] MEDS: enoxaparin 40mg/0.4ml syringe SUBCUT SCH (08:59)
[2018-08-28] MEDS: amLODIPine 5mg tablet PO SCH (09:00)
[2018-08-28] MEDS: normal saline 1000ml 1,000 ML IV SCH ×2 (17:30→20:50)
--- NOTE | 2018-08-28 18:40 | NUR ---
I have received report and assumed care of pt, family at bedside denies needs or distress
[2018-08-28 19:10] LABS: CLARITY,URINE SLIGHTLY CLOUDY (Clear); COLOR,URINE YELLOW (Yellow); GLUCOSE, URINE NEGATIVE (Neg); KETONES,URINE 15 mg/dl (Neg); LEUKOCYTE ESTERASE ,URINE NEGATIVE (Neg); NITRITES, URINE NEGATIVE (Neg); OCCULT BLOOD,URINE LARGE (Neg); PH,URINE 5.5 (4.8-8.0); PROTEIN,URINE 30 mg/dl (Neg)
[2018-08-28 19:12] LABS: UA COLLECTION TYPE FOLEY CATH
[2018-08-28 19:36] LABS: URIC ACID CRYSTALS 2+ /HPF (NEGATIVE)
[2018-08-28 19:37] LABS: BACTERIA,URINE 1+ /HPF (Neg); MUCUS STRANDS FEW /LPF (Neg); RBC,URINE TNTC /HPF (0-2); SQUAMOUS EPITHELIAL CELL,UR FEW /LPF (FEW)
[2018-08-28] MEDS: Melatonin 3mg tablet PO SCH (20:53)
[2018-08-28 21:35] LABS: UA EOSINOPHILS NO EOS /HPF
[2018-08-29] VITALS (17 sets, daily range): BP systolic 118–174; BP diastolic 42–74
[2018-08-29] MEDS: piperacillin/tazo 3.375gm/50ml 50 ML IV SCH ×3 (01:00→15:49)
[2018-08-29] MEDS: HYDROmorphone/NS 1 mg/ml CADD 50 ML IV SCH ×12 (01:00→23:00)
[2018-08-29 04:31] LABS: BASOPHILS % (AUTO) 0.2 % (0-1); EOSINOPHILS # (AUTO) 0.3 X10'3 (0-0.9); EOSINOPHILS % (AUTO) 2.6 % (0-6); HEMATOCRIT 34.7 % (42.0-52.0); HEMOGLOBIN 11.7 g/dl (14.0-17.9); LYMPHOCYTES # (AUTO) 1.1 X10'3 (1.1-4.8); LYMPHOCYTES % (AUTO) 8.2 % (21-51); MEAN CORPUSCULAR HEMOGLOBIN 29.5 PG (27.0-31.0); MEAN CORPUSCULAR HGB CONC 33.7 g/dL (33.0-36.5); MEAN CORPUSCULAR VOLUME 87.5 FL (78-98); MEAN PLATELET VOLUME 9.5 FL (7.4-10.4); MONOCYTES # (AUTO) 0.8 X10'3 (0-0.9); MONOCYTES % (AUTO) 6.4 % (2-12); NEUTROPHILS # (AUTO) 10.8 X10'3 (1.8-7.7); NEUTROPHILS % (AUTO) 82.6 % (42-75); PLATELET COUNT 213 X10'3 (140-440); RED BLOOD COUNT 3.96 X10'6 (4.70-6.10); RED CELL DISTRIBUTION WIDTH 15.2 % (11.5-14.5); WHITE BLOOD COUNT 13.1 X10'3 (4.5-11.0)
[2018-08-29 04:32] LABS: ALBUMIN 2.3 G/DL (3.4-5.0); ANION GAP 8 (8-16); BLOOD UREA NITROGEN 31 MG/DL (7-18); BUN/CREATININE RATIO 23.7 (5.4-32.0); CALCIUM 7.8 MG/DL (8.5-10.1); CHLORIDE 112 MMOL/L (99-107); CREATININE 1.31 MG/DL (0.60-1.10); GLUCOSE 132 MG/DL (70-104); SODIUM 147 MMOL/L (135-145); TOTAL CARBON DIOXIDE 27.1 MMOL/L (24-32); eGFR 54 ML/MIN
[2018-08-29 04:33] LABS: POTASSIUM 2.9 MMOL/L (3.5-5.1)
[2018-08-29] MEDS: normal saline 1000ml 1,000 ML IV SCH ×2 (05:26→10:00)
--- NOTE | 2018-08-29 06:30 | NUR ---
Patient in room [facility] 344. I have received report from TR[employer] ACCOUNT[employer] SUPERVISOR RN and had the opportunity to ask questions and assume patient care.
[2018-08-29] MEDS ORDERED: ipratropium/albuterol 3ml nebule NEB PRN (06:50)
[2018-08-29] MEDS: lactobacillus rhamnosus 10,000 MMU CELLS/CAPSULE PO SCH ×2 (07:09→19:54)
[2018-08-29] MEDS: amLODIPine 5mg tablet PO SCH (07:09)
[2018-08-29] MEDS: gabapentin 300mg capsule PO SCH ×2 (07:09→19:55)
[2018-08-29] MEDS: loratadine 10mg tablet PO SCH (07:09)
[2018-08-29] MEDS: potassium Cl 20 mEq SR tablet PO PRN ×3 (07:10→21:59)
[2018-08-29] MEDS: enoxaparin 40mg/0.4ml syringe SUBCUT SCH (07:12)
[2018-08-29] MEDS: labetalol 100mg tablet PO SCH ×2 (08:31→19:55)
--- NOTE | 2018-08-29 11:30 | NUR ---
GILES dc without problems, up to chair for lunch, wound vac applied at 1330 without problems, pt tolerated well.
[2018-08-29] MEDS ORDERED: CADD PCA waste documentation MC SCH (14:05)
--- NOTE | 2018-08-29 15:28 | NUR ---
WOUND VAC EDUCATION PROVIDED BY WOUND CARE 1. Patient instructed to call the Wound Center or their Home Health Agency immediately if: * They notice a change in the color or amount of the fluid in the canister. * Their wound looks more red than usual or has a foul smell. * The skin around their wound looks reddened or irritated. * The dressing feels loose or appears to be loose. * They experience any increase or changes in their pain. * The alarm will not turn off. 2. Patient instructed that they should not be disconnected from suction for more than 2 hours at a time. * If they are not able to get the suction back on, they need to remove the dressing and take all of the foam out of the wound. * Then moisten sterile gauze with normal saline and place on/in the wound. * Change the dressing once a day until arrangements have been made to replace the wound vac dressing. 3. Patient instructed to turn the wound vac machine OFF and call 911 or go to the ED immediately if their canister fills rapidly with blood. 4. If any of these occur while in the hospital tell a nurse immediately. Addendum: 08/29/18 at 1635 by Asya Olmstead RN Amended: Links added.
--- NOTE | 2018-08-29 16:10 | NUR ---
transfered to surgical floor, all belongings taken, ambulated 300 ft tolerated well.
--- NOTE | 2018-08-29 16:28 | NUR ---
RECOMMEND: 1. Daily bathing with no rinse skin cleanser. 2. Cream/Lotion to be applied to skin after bathing. 4. Assist patient to turn Q 1-2 hrs. 5. Float heels to offload pressure. 6. Wound VAC to abd incisional wound. Settings 125mmHg, low, continuous. Routine VAC dressing changes Addendum: 08/29/18 at 1635 by Asya Olmstead RN Amended: Links added.
--- NOTE | 2018-08-29 18:30 | NUR ---
Patient in room [facility] 344. I have received report from Ila DAVIDSON and had the opportunity to ask questions and assume patient care.
--- NOTE | 2018-08-29 18:30 | NUR ---
Patient in room [facility] 344. I have received report from STUART CERON and had the opportunity to ask questions and assume patient care. ASSUMED PT CARE WITH STUART RODRIGUEZ Addendum: 08/30/18 at 0155 by Evert Candelario RN Amended: Links added.
--- NOTE | 2018-08-29 18:42 | NUR ---
Problems reprioritized. Patient report given, questions answered & plan of care reviewed with Jaz DAVIDSON.
--- NOTE | 2018-08-29 19:00 | NUR ---
Not sure who picked up partients dinner aggie nunez on shift say that they did not. Patient can not remember how much he ate for dinner Addendum: 08/30/18 at 0317 by Fran Chang RN Amended: Links added.
[2018-08-29] MEDS: Melatonin 3mg tablet PO SCH (21:59)
[2018-08-30] VITALS: BP 144/59
[2018-08-30] MEDS: piperacillin/tazo 3.375gm/50ml 50 ML IV SCH ×3 (00:21→16:08)
[2018-08-30] MEDS: HYDROmorphone/NS 1 mg/ml CADD 50 ML IV SCH ×6 (01:00→11:00)
--- NOTE | 2018-08-30 04:09 | NUR ---
REVIEWED AND AGREE WITH NURSING ASSESSMENT DONE BY STUART RODRIGUEZ Addendum: 08/30/18 at 0409 by Evert Candelario RN Amended: Links added.
[2018-08-30 04:50] LABS: BASOPHILS # (AUTO) 0.1 X10'3 (0-0.2); BASOPHILS % (AUTO) 0.4 % (0-1); EOSINOPHILS # (AUTO) 0.7 X10'3 (0-0.9); EOSINOPHILS % (AUTO) 4.8 % (0-6); HEMATOCRIT 35.3 % (42.0-52.0); HEMOGLOBIN 11.9 g/dl (14.0-17.9); LYMPHOCYTES # (AUTO) 1.4 X10'3 (1.1-4.8); MEAN CORPUSCULAR HEMOGLOBIN 29.3 PG (27.0-31.0); MEAN CORPUSCULAR HGB CONC 33.6 g/dL (33.0-36.5); MEAN CORPUSCULAR VOLUME 87.3 FL (78-98); MEAN PLATELET VOLUME 9.5 FL (7.4-10.4); MONOCYTES % (AUTO) 7.4 % (2-12); NEUTROPHILS # (AUTO) 10.5 X10'3 (1.8-7.7); NEUTROPHILS % (AUTO) 77.4 % (42-75); PLATELET COUNT 242 X10'3 (140-440); RED BLOOD COUNT 4.04 X10'6 (4.70-6.10); RED CELL DISTRIBUTION WIDTH 14.5 % (11.5-14.5); WHITE BLOOD COUNT 13.6 X10'3 (4.5-11.0)
[2018-08-30 05:23] LABS: ALBUMIN 2.3 G/DL (3.4-5.0); ANION GAP 6 (8-16); BLOOD UREA NITROGEN 19 MG/DL (7-18); BUN/CREATININE RATIO 14.8 (5.4-32.0); CHLORIDE 110 MMOL/L (99-107); CREATININE 1.28 MG/DL (0.60-1.10); GLUCOSE 131 MG/DL (70-104); POTASSIUM 3.4 MMOL/L (3.5-5.1); SODIUM 143 MMOL/L (135-145); TOTAL CARBON DIOXIDE 26.7 MMOL/L (24-32); eGFR 56 ML/MIN
[2018-08-30] MEDS ORDERED: normal saline 1000ml 1,000 ML IV SCH (05:46)
--- NOTE | 2018-08-30 06:05 | NUR ---
Problems reprioritized. Patient report given, questions answered & plan of care reviewed with Ila DAVIDSON.
--- NOTE | 2018-08-30 06:45 | NUR ---
Patient in room [facility] 344. I have received report from Fran DAVIDSON and had the opportunity to ask questions and assume patient care.
[2018-08-30 07:00] VITALS: BP 169/73
[2018-08-30] MEDS: gabapentin 300mg capsule PO SCH ×2 (07:51→20:26)
[2018-08-30] MEDS: lactobacillus rhamnosus 10,000 MMU CELLS/CAPSULE PO SCH ×2 (07:51→20:25)
[2018-08-30] MEDS: amLODIPine 5mg tablet PO SCH (07:52)
[2018-08-30] MEDS: aspirin 81mg tablet.DR PO SCH (07:52)
[2018-08-30] MEDS: labetalol 100mg tablet PO SCH ×2 (07:52→20:26)
[2018-08-30] MEDS: loratadine 10mg tablet PO SCH (07:52)
[2018-08-30] MEDS: enoxaparin 40mg/0.4ml syringe SUBCUT SCH (07:52)
[2018-08-30 11:00] VITALS: BP 151/65
--- NOTE | 2018-08-30 16:44 | NUR ---
Reassessment: Pt s/p colon resection with colostomy and wound VAC placed. LBM 08/29. Patient's diet has been advanced to regular with documented 100% PO intake meeting nutrient needs. LEAH attempted visit with pt at bedside however pt not available. Will continue to follow and provide colostomy ed prior to discharge. Rec: 1. advance diet per MD to low-residue 2. colostomy diet ed once clinically stable prior to d/c 3. wt per rx Addendum: 08/30/18 at [address] Amended: Links added.
--- NOTE | 2018-08-30 18:30 | NUR ---
Patient in room [facility] 344. I have received report from STUART Hughes and had the opportunity to ask questions and assume patient care. Addendum: 08/30/18 at 2256 by Evert Candelario RN Amended: Links added.
--- NOTE | 2018-08-30 18:55 | NUR ---
Problems reprioritized. Patient report given, questions answered & plan of care reviewed with Jaz DAVIDSON and Fran DAVIDSON.
[2018-08-30 20:20] VITALS: BP 107/71
[2018-08-30] MEDS: Melatonin 3mg tablet PO SCH (20:25)
[2018-08-31] MEDS: piperacillin/tazo 3.375gm/50ml 50 ML IV SCH ×3 (00:21→16:00)
[2018-08-31 00:51] VITALS: BP 153/71
[2018-08-31 04:45] LABS: ALBUMIN 2.1 G/DL (3.4-5.0); ANION GAP 11 (8-16); BLOOD UREA NITROGEN 18 MG/DL (7-18); CALCIUM 7.9 MG/DL (8.5-10.1); CHLORIDE 108 MMOL/L (99-107); CREATININE 1.06 MG/DL (0.60-1.10); GLUCOSE 117 MG/DL (70-104); SODIUM 142 MMOL/L (135-145); TOTAL CARBON DIOXIDE 23.2 MMOL/L (24-32); eGFR 69 ML/MIN
[2018-08-31] MEDS: potassium Cl 20 mEq SR tablet PO PRN ×3 (05:10→15:22)
--- NOTE | 2018-08-31 06:17 | NUR ---
Problems reprioritized. Patient report given, questions answered & plan of care reviewed with Elizabeth DAVIDSON and Xiomara BANSAL student.
--- NOTE | 2018-08-31 06:20 | NUR ---
Patient in room [facility] 344. I have received report from Jaz RN and Fran RN and had the opportunity to ask questions and assume patient care.
[2018-08-31 07:00] VITALS: BP 159/68
[2018-08-31 07:03] LABS: BASOPHILS # (AUTO) 0.1 X10'3 (0-0.2); BASOPHILS % (AUTO) 0.5 % (0-1); EOSINOPHILS # (AUTO) 0.8 X10'3 (0-0.9); EOSINOPHILS % (AUTO) 7.3 % (0-6); HEMATOCRIT 32.2 % (42.0-52.0); LYMPHOCYTES # (AUTO) 1.5 X10'3 (1.1-4.8); LYMPHOCYTES % (AUTO) 13.9 % (21-51); MEAN CORPUSCULAR HEMOGLOBIN 29.5 PG (27.0-31.0); MEAN CORPUSCULAR HGB CONC 34.1 g/dL (33.0-36.5); MEAN CORPUSCULAR VOLUME 86.3 FL (78-98); MEAN PLATELET VOLUME 9.2 FL (7.4-10.4); NEUTROPHILS # (AUTO) 7.7 X10'3 (1.8-7.7); NEUTROPHILS % (AUTO) 69.3 % (42-75); PLATELET COUNT 245 X10'3 (140-440); RED BLOOD COUNT 3.73 X10'6 (4.70-6.10); RED CELL DISTRIBUTION WIDTH 14.6 % (11.5-14.5); WHITE BLOOD COUNT 11.1 X10'3 (4.5-11.0)
[2018-08-31] MEDS: loratadine 10mg tablet PO SCH (07:56)
[2018-08-31] MEDS: amLODIPine 5mg tablet PO SCH (07:56)
[2018-08-31] MEDS: labetalol 100mg tablet PO SCH (07:56)
[2018-08-31] MEDS: gabapentin 300mg capsule PO SCH (07:56)
[2018-08-31] MEDS: lactobacillus rhamnosus 10,000 MMU CELLS/CAPSULE PO SCH (07:57)
[2018-08-31] MEDS: enoxaparin 40mg/0.4ml syringe SUBCUT SCH (07:57)
[2018-08-31 11:07] VITALS: BP 150/69
--- NOTE | 2018-08-31 11:31 | NUR ---
Student documentation: I have reviewed interventions, assessments performed and documented by Debora Darling [facility].
--- NOTE | 2018-08-31 14:44 | NUR ---
Pt seen at bedside with SO present given written and verbal protein and colostomy nutrition therapy education. All questions were answered at this time. Pt endorses a good appetite and denies any GI discomfort with colostomy at this time. LEAH contact information provided. [facility] 08/31. Will continue to follow. Addendum: 08/31/18 at [address] Amended: Links added.
--- NOTE | 2018-08-31 15:14 | NUR ---
Spoke to Dr. Cruz concerning patient's discharge. Per Dr. Cruz, wound vac need to be changed today before discharge.
--- NOTE | 2018-08-31 16:45 | NUR ---
Wound clinic RN changed wound vac dressing and performed wound care. No wound photo documentation.
== END 2018-08-31 17:10 | disposition home health service (06) | DRG 329 ==
LOC: ER 09:44 → SUR 3N 18:18 → CMPBEDREQ 20:00 → ICU 2S 08-27 12:10 → SUR 3N 08-29 16:15
PROVIDERS: ADMIT Internal Medicine; ATTEND Surgery
PROC: BW211ZZ Computerized Tomography (CT Scan) of Abdomen and Pelvis using Low Osmolar Contrast (ICD-10-PCS; 2018-08-22)
PROC: 0D9670Z Drainage of Stomach with Drainage Device, Via Natural or Artificial Opening (ICD-10-PCS; 2018-08-22)
PROC: 0DTN0ZZ Resection of Sigmoid Colon, Open Approach (ICD-10-PCS; 2018-08-27)
PROC: 0D1L0Z4 Bypass Transverse Colon to Cutaneous, Open Approach (ICD-10-PCS; principal; 2018-08-27 10:21)
DX: K56.609 Unspecified intestinal obstruction, unspecified as to partial versus complete obstruction (principal); K55.069 Acute infarction of intestine, part and extent unspecified; N17.9 Acute kidney failure, unspecified; E86.0 Dehydration; I10 Essential (primary) hypertension; J45.909 Unspecified asthma, uncomplicated; K56.7 Ileus, unspecified; G89.29 Other chronic pain; M54.9 Dorsalgia, unspecified; Z79.899 Other long term (current) drug therapy; Z79.82 Long term (current) use of aspirin
CPT/HCPCS: 36415; 74018; 74176; 74177; 80048; 80053; 81001; 82570; 83605; 83690; 83735; 84145; 84300; 84484; 85025; 85610; 85730; 87040; 87070; 87207; 88305; 88309; 93005; 94640; 94667; 94760; 96365; 96375; 97110; 97116; 97162; 97530; 99285; A4421; A6258; A6446; A7000; G0378; J0360; J1100; J1170; J1650; J2001; J2270; J2405; J2543; J2704; J2710; J2765; J3010; J3480; J3490; J7030; J7120; J7626; Q9963; Q9967

== ENCOUNTER 2019-04-18 10:39 | Inpatient (IN) | payer MEDICARE ==
[2019-04-17 12:10] LABS: BASOPHILS # (AUTO) 0.1 X10'3 (0-0.2); BASOPHILS % (AUTO) 0.6 % (0-1); EOSINOPHILS # (AUTO) 0.3 X10'3 (0-0.9); LYMPHOCYTES # (AUTO) 1.6 X10'3 (1.1-4.8); MEAN CORPUSCULAR HGB CONC 34.4 g/dL (33.0-36.5); MEAN CORPUSCULAR VOLUME 98.9 FL (78-98); MEAN PLATELET VOLUME 8.9 FL (7.4-10.4); MONOCYTES # (AUTO) 1.1 X10'3 (0-0.9); NEUTROPHILS # (AUTO) 6.4 X10'3 (1.8-7.7); NEUTROPHILS % (AUTO) 67.4 % (42-75); PRE OP HEMATOCRIT 41.8 % (42.0-52.0); PRE OP HEMOGLOBIN 14.4 g/dL (14.0-17.9); PRE OP PLATELET COUNT 207 X10'3 (140-440); RED BLOOD COUNT 4.22 X10'6 (4.70-6.10); RED CELL DISTRIBUTION WIDTH 16.1 % (11.5-14.5)
[2019-04-17 12:19] LABS: CLARITY,URINE CLEAR (Clear); COLOR,URINE YELLOW (Yellow); GLUCOSE, URINE NEGATIVE (Neg); KETONES,URINE NEGATIVE (Neg); LEUKOCYTE ESTERASE ,URINE TRACE (Neg); NITRITES, URINE NEGATIVE (Neg); OCCULT BLOOD,URINE NEGATIVE (Neg); PH,URINE 5.5 (4.8-8.0); PROTEIN,URINE NEGATIVE (Neg); UROBILINOGEN,URINE 0.2 E.U/dL (0.2-1.0)
[2019-04-17 12:20] LABS: PRE OP PROTIME 10.6 SECONDS (9.0-12.0)
[2019-04-17 12:21] LABS: UA COLLECTION TYPE CLN CATCH MIDSTREAM
[2019-04-17 12:22] LABS: ALBUMIN 3.8 G/DL (3.4-5.0); ALBUMIN/GLOBULIN RATIO 1.2 (1.1-1.5); ALKALINE PHOSPHATASE 88 IU/L (46-116); BLOOD UREA NITROGEN 19 MG/DL (7-18); BUN/CREATININE RATIO 14.5 (5.4-32.0); CHLORIDE 109 MMOL/L (99-107); CREATININE 1.31 MG/DL (0.60-1.10); PRE OP ALT 34 U/L (30-65); PRE OP ANION GAP 3 (8-16); PRE OP AST 24 U/L (10-37); PRE OP BILIRUB, TOTAL 0.4 MG/DL (0.0-1.0); PRE OP GLUCOSE 104 MG/DL (70-104); PRE OP POTASSIUM 4.1 MMOL/L (3.4-5.1); PRE OP SODIUM 141 MMOL/L (135-145); TOTAL CARBON DIOXIDE 28.9 MMOL/L (24-32); TOTAL PROTEIN 7.1 G/DL (6.4-8.2); eGFR 54 ML/MIN
[2019-04-17 12:25] LABS: MUCUS STRANDS MANY /LPF (Neg)
[2019-04-17 12:26] LABS: HYALINE CASTS 0-3 /LPF (NEGATIVE)
[2019-04-17 12:28] LABS: SQUAMOUS EPITHELIAL CELL,UR FEW /LPF (FEW)
[2019-04-17 12:29] LABS: BACTERIA,URINE FEW /HPF (Neg)
[2019-04-17 12:30] LABS: RBC,URINE 0-2 /HPF (0-2)
[2019-04-17 12:32] LABS: AMORPHOUS URATES 1+
[~2019-04-18] VITALS: Ht 175.3 cm; Wt 108.5 kg
[2019-04-18] VITALS (16 sets, daily range): BP systolic 133–166; BP diastolic 65–88
[~2019-04-18 10:39] MED LIST: AMLO5TAB PO; ASPI81TA52 PO; B12 INJECTION; CHOL400T14 PO; DOCUMENT DATE & TIME OF BETA-BLOCKER PO ONE; FLUT15.815; GABA-532 PO; IBUP-1984 PO; LABE100T5 PO; LORA-641 PO; MELA3TAB64 PO; MOME13HF INH; ceFOXitin 2 GM ADDvantage bag 100 ML IV ONE; ceFOXitin 2 GM ADDvantage bag 50 ML IV ONE; famotidine 10mg tablet PO ONE; famotidine 20mg tablet PO ONE; ringers solution, lacted 1,000 ML IV SCH; scopolamine 1.5mg patch.TD72 TD ONE
[2019-04-18] MEDS ORDERED: iohexol 300 MG/1 ML 10ml vial ONE (12:23)
[2019-04-18] MEDS ORDERED: sevoflurane 250ml liquid IH ONE (12:30)
[2019-04-18] MEDS ORDERED: midazolam 2 mg/2 ml injection ONE (12:38)
[2019-04-18] MEDS ORDERED: fentaNYL /PF 50mcg/ml 5ml ampule ONE (12:38)
[2019-04-18] MEDS ORDERED: rocuronium 10mg/ml inj IV ONE ×2 (13:53)
[2019-04-18] MEDS ORDERED: propofol inj 20 ML IV ONE (13:54)
[2019-04-18] MEDS ORDERED: dexamethasone sod phosphate 4mg/ml inj. ONE (13:54)
[2019-04-18] MEDS ORDERED: meperidine/PF 25mg/ml syringe IV PRN ×3 (14:05)
[2019-04-18] MEDS ORDERED: morphine 4 MG/ML inj SYRINge IV PRN ×2 (14:05)
[2019-04-18] MEDS ORDERED: proCHLORperazine 10 MG/2 ml inj IV PRN (14:05)
[2019-04-18] MEDS ORDERED: ondansetron/PF 4mg/2ml inj IV PRN ×2 (14:05→15:10)
[2019-04-18] MEDS ORDERED: ringers solution, lacted 1,000 ML IV SCH (14:05)
[2019-04-18] MEDS ORDERED: acetaminophen 1,000mg/100ml IV 100 ML IV ONE (14:45)
[2019-04-18] MEDS ORDERED: ondansetron/PF 4mg/2ml inj ONE (15:02)
[2019-04-18] MEDS ORDERED: neostigmine methylsulfate 1 MG/ML 10ml vial ONE (15:02)
[2019-04-18] MEDS ORDERED: glycopyrrolate 0.2mg/ml inj ONE (15:03)
[2019-04-18] MEDS ORDERED: Potassium Cl inj 20 MEQ in ringers solution, lacted 1,000 ML IV SCH (15:10)
--- NOTE | 2019-04-18 15:20 | NUR ---
Received from OR via BED, accompanied by Anesthesiologist DR BURGESS-- and report given by Anesthesiolgist. PATIENT A&OX4, DENIES PAIN, V/S WNL, NEUROVASCULAR CHECKS INTACT, 18G PIV LUE, SCD ON, DRESSING TO ABDOMEN CDI WITH ABD BINDER, F/C DRAINING CLEAR PINK COLORED URINE RT STENT IN AND OUT OF URETUR MOST LIKELY PER OR CREW.
--- NOTE | 2019-04-18 16:10 | NUR ---
PATIENT A&OX4, DENIES PAIN, V/S WNL, NEUROVASCULAR CHECKS INTACT, 18G PIV LUE, SCD ON, DRESSING TO ABDOMEN CDI WITH ABD BINDER, F/C DRAINING CLEAR PINK COLORED URINE RT STENT IN AND OUT OF URETUR MOST LIKELY PER OR CREW.PATIENT TAKEN TO 355A WITH ALL BELONGINGS AND HOOKED UP TO MONITORS IN ROOM AND REPORT GIVEN TO RN WHO HAS TAKEN OVER PATIENT CARE.
--- NOTE | 2019-04-18 18:12 | NUR ---
Problems reprioritized. Patient report given, questions answered & plan of care reviewed with STUART HART.
--- NOTE | 2019-04-18 18:16 | NUR ---
Received report from Diya DAVIDSON pt is resting on 2L of O2 at bedside, hooked up to post-op vitals in no apparent distress
[2019-04-18] MEDS: ibuprofen tablet 400 MG TABLET PO SCH (19:14)
[2019-04-18] MEDS: gabapentin 300mg capsule PO SCH (19:14)
[2019-04-18] MEDS: albuterol 2.5 MG/3 ML nebule NEB SCH (19:37)
[2019-04-18] MEDS: budesonide 0.5mg/2ml UD nebule IH SCH (19:37)
[2019-04-18] MEDS: labetalol 100mg tablet PO SCH (20:29)
[2019-04-19 00:18] VITALS: BP 155/76
[2019-04-19] MEDS: albuterol 2.5 MG/3 ML nebule NEB SCH ×4 (03:17→19:44)
[2019-04-19 04:53] VITALS: BP 141/69
[2019-04-19 05:22] LABS: ALBUMIN 3.7 G/DL (3.4-5.0); ANION GAP 8 (8-16); BLOOD UREA NITROGEN 22 MG/DL (7-18); BUN/CREATININE RATIO 14.5 (5.4-32.0); CALCIUM 8.4 MG/DL (8.5-10.1); CHLORIDE 105 MMOL/L (99-107); CREATININE 1.52 MG/DL (0.60-1.10); GLUCOSE 188 MG/DL (70-104); POTASSIUM 4.3 MMOL/L (3.5-5.1); SODIUM 138 MMOL/L (135-145); TOTAL CARBON DIOXIDE 24.7 MMOL/L (24-32); eGFR 46 ML/MIN
--- NOTE | 2019-04-19 06:11 | NUR ---
gave report to April DAVIDSON pt is awake and alert on 2L of O2 via NC in no apparent distress, call light and items of freq use within reach.
[2019-04-19 07:00] VITALS: BP 152/79
--- NOTE | 2019-04-19 07:16 | NUR ---
Patient in room [facility] 355. I have received report from STUART HART and had the opportunity to ask questions and assume patient care.
[2019-04-19] MEDS: budesonide 0.5mg/2ml UD nebule IH SCH ×2 (07:31→19:44)
--- NOTE | 2019-04-19 07:52 | NUR ---
NOTICED THAT AMLODIPINE IN THE MAR WAS 1MG BUT IN THE MED REC THE DOSE WAS 5MG, MESSAGED THE PHARMACY, WILL ALERT DR BASHIR WHEN HE ROUNDS
[2019-04-19] MEDS ORDERED: amLODIPine 5mg tablet PO SCH (08:00)
[2019-04-19] MEDS: vitamin D (cholecalciferol) 1,000 unit tablet PO SCH (08:05)
[2019-04-19] MEDS: fluticasone nasal spray 16GM bottle NS SCH (08:05)
[2019-04-19] MEDS: loratadine 10mg tablet PO SCH (08:05)
[2019-04-19] MEDS: ibuprofen tablet 400 MG TABLET PO SCH ×2 (08:05→20:03)
[2019-04-19] MEDS: labetalol 100mg tablet PO SCH ×2 (08:05→20:03)
[2019-04-19] MEDS: gabapentin 300mg capsule PO SCH ×2 (08:05→20:03)
[2019-04-19] MEDS: amLODIPine 5mg tablet PO SCH (08:07)
[2019-04-19 11:00] VITALS: BP 120/56
[2019-04-19] MEDS: Potassium Cl inj 20 MEQ in ringers solution, lacted 1,000 ML IV SCH ×2 (11:32→22:09)
--- NOTE | 2019-04-19 18:42 | NUR ---
Problems reprioritized. Patient report given, questions answered & plan of care reviewed with STUART MARCUM.
[2019-04-19 20:00] VITALS: BP 158/65
--- NOTE | 2019-04-19 20:30 | NUR ---
Patient ambulated with assist x1 using gait belt and FWW without his oxygen on. Patient did first lap and oxygen check was 93%. Patient did a total of 3 laps around nursing station. O2 check afterwards 92%, states he feels fine. He doesn't want to wear the oxygen. Patient currently on Room air. Will continue with care.
[2019-04-20] VITALS: BP 157/75
[2019-04-20] MEDS: albuterol 2.5 MG/3 ML nebule NEB SCH ×4 (02:50→20:43)
[2019-04-20 06:16] LABS: HEMATOCRIT 38.7 % (42.0-52.0); HEMOGLOBIN 13.1 g/dl (14.0-17.9); MEAN CORPUSCULAR HEMOGLOBIN 33.5 PG (27.0-31.0); MEAN CORPUSCULAR HGB CONC 33.7 g/dL (33.0-36.5); MEAN CORPUSCULAR VOLUME 99.2 FL (78-98); MEAN PLATELET VOLUME 9.3 FL (7.4-10.4); PLATELET COUNT 206 X10'3 (140-440); RED CELL DISTRIBUTION WIDTH 15.7 % (11.5-14.5); WHITE BLOOD COUNT 24.3 X10'3 (4.5-11.0)
[2019-04-20] MEDS: Potassium Cl inj 20 MEQ in ringers solution, lacted 1,000 ML IV SCH ×3 (06:17→20:54)
[2019-04-20 06:28] LABS: ALBUMIN 3.5 G/DL (3.4-5.0); ANION GAP 9 (8-16); BLOOD UREA NITROGEN 30 MG/DL (7-18); BUN/CREATININE RATIO 14.9 (5.4-32.0); CALCIUM 8.5 MG/DL (8.5-10.1); CHLORIDE 105 MMOL/L (99-107); CREATININE 2.02 MG/DL (0.60-1.10); GLUCOSE 149 MG/DL (70-104); POTASSIUM 4.8 MMOL/L (3.5-5.1); SODIUM 138 MMOL/L (135-145); TOTAL CARBON DIOXIDE 24.5 MMOL/L (24-32); eGFR 33 ML/MIN
--- NOTE | 2019-04-20 06:31 | NUR ---
Patient in room [facility] 355. I have received report from STUART MARCUM and had the opportunity to ask questions and assume patient care.
--- NOTE | 2019-04-20 06:42 | NUR ---
Problems reprioritized. Patient report given, questions answered & plan of care reviewed with April.
[2019-04-20 06:58] LABS: ANISOCYTOSIS 1+; PLATELET ESTIMATE NORMAL; TOTAL CELLS COUNTED 100
[2019-04-20 07:00] VITALS: BP 162/63
[2019-04-20] MEDS: budesonide 0.5mg/2ml UD nebule IH SCH ×2 (07:12→20:43)
--- NOTE | 2019-04-20 08:15 | NUR ---
NOTIFIED DR. BASHIR OF PATIENT'S WBC GOING FROM 9.5 TO 24.3, DR ORDERED REPEAT CBC IN THE MORNING
[2019-04-20] MEDS ORDERED: VANCOMYCIN LEVEL IV ONE (08:30)
[2019-04-20] MEDS: ibuprofen tablet 400 MG TABLET PO SCH ×2 (09:59→20:59)
[2019-04-20] MEDS: gabapentin 300mg capsule PO SCH ×2 (09:59→21:00)
[2019-04-20] MEDS: enoxaparin 40mg/0.4ml syringe SUBCUT SCH (09:59)
[2019-04-20] MEDS: loratadine 10mg tablet PO SCH (09:59)
[2019-04-20] MEDS: amLODIPine 5mg tablet PO SCH (09:59)
[2019-04-20] MEDS: labetalol 100mg tablet PO SCH ×2 (09:59→20:59)
[2019-04-20] MEDS: fluticasone nasal spray 16GM bottle NS SCH (10:00)
[2019-04-20] MEDS: vitamin D (cholecalciferol) 1,000 unit tablet PO SCH (10:00)
[2019-04-20 11:00] VITALS: BP 139/58
--- NOTE | 2019-04-20 12:34 | NUR ---
WOUND INFECTION EDUCATION PROVIDED BY WOUND CARE 1. Patient instructed to call their primary doctor, or go the ED immediately if any of the following symptoms occur: * Increased pain in wound * Increase in drainage from the wound * Redness in the skin surrounding the wound * Warmth in the skin surrounding the wound * Bleeding from the wound * Temperature of 101 or greater 2. If any of these occur while in the hospital tell a nurse immediately. WOUND VAC EDUCATION PROVIDED BY WOUND CARE 1. Patient instructed to call the Wound Center or their Home Health Agency immediately if: * They notice a change in the color or amount of the fluid in the canister. * Their wound looks more red than usual or has a foul smell. * The skin around their wound looks reddened or irritated. * The dressing feels loose or appears to be loose. * They experience any increase or changes in their pain. * The alarm will not turn off. 2. Patient instructed that they should not be disconnected from suction for more than 2 hours at a time. * If they are not able to get the suction back on, they need to remove the dressing and take all of the foam out of the wound. * Then moisten sterile gauze with normal saline and place on/in the wound. * Change the dressing once a day until arrangements have been made to replace the wound vac dressing. 3. Patient instructed to turn the wound vac machine OFF and call 911 or go to the ED immediately if their canister fills rapidly with blood. 4. If any of these occur while in the hospital tell a nurse immediately. Addendum: 04/20/19 at 1235 by Amanuel Nixon RN Amended: Links added.
--- NOTE | 2019-04-20 18:10 | NUR ---
Problems reprioritized. Patient report given, questions answered & plan of care reviewed with STUART MARCUM.
[2019-04-20 20:00] VITALS: BP 144/67
[2019-04-21] VITALS: BP 158/64
[2019-04-21] MEDS: albuterol 2.5 MG/3 ML nebule NEB SCH ×4 (02:49→19:46)
[2019-04-21] MEDS: Potassium Cl inj 20 MEQ in ringers solution, lacted 1,000 ML IV SCH (03:45)
[2019-04-21 06:36] LABS: BASOPHILS % (AUTO) 0.2 % (0-1); EOSINOPHILS # (AUTO) 0.3 X10'3 (0-0.9); EOSINOPHILS % (AUTO) 1.4 % (0-6); HEMATOCRIT 37.3 % (42.0-52.0); HEMOGLOBIN 12.7 g/dl (14.0-17.9); LYMPHOCYTES # (AUTO) 1.8 X10'3 (1.1-4.8); LYMPHOCYTES % (AUTO) 9.4 % (21-51); MEAN CORPUSCULAR HEMOGLOBIN 33.6 PG (27.0-31.0); MEAN CORPUSCULAR HGB CONC 34.1 g/dL (33.0-36.5); MEAN CORPUSCULAR VOLUME 98.4 FL (78-98); MEAN PLATELET VOLUME 10.2 FL (7.4-10.4); MONOCYTES % (AUTO) 10.6 % (2-12); NEUTROPHILS # (AUTO) 14.5 X10'3 (1.8-7.7); NEUTROPHILS % (AUTO) 78.4 % (42-75); PLATELET COUNT 195 X10'3 (140-440); RED BLOOD COUNT 3.79 X10'6 (4.70-6.10); RED CELL DISTRIBUTION WIDTH 15.6 % (11.5-14.5); WHITE BLOOD COUNT 18.6 X10'3 (4.5-11.0)
--- NOTE | 2019-04-21 06:57 | NUR ---
Problems reprioritized. Patient report given, questions answered & plan of care reviewed with Desi DAVIDSON.
[2019-04-21 06:58] LABS: ALBUMIN 3.5 G/DL (3.4-5.0); ANION GAP 7 (8-16); BLOOD UREA NITROGEN 32 MG/DL (7-18); BUN/CREATININE RATIO 14.7 (5.4-32.0); CALCIUM 8.3 MG/DL (8.5-10.1); CHLORIDE 106 MMOL/L (99-107); CREATININE 2.18 MG/DL (0.60-1.10); GLUCOSE 106 MG/DL (70-104); POTASSIUM 4.2 MMOL/L (3.5-5.1); SODIUM 140 MMOL/L (135-145); TOTAL CARBON DIOXIDE 26.7 MMOL/L (24-32); eGFR 30 ML/MIN
[2019-04-21 07:25] VITALS: BP 153/72
[2019-04-21] MEDS: ibuprofen tablet 400 MG TABLET PO SCH ×2 (07:55→20:28)
[2019-04-21] MEDS: labetalol 100mg tablet PO SCH ×2 (07:55→20:32)
[2019-04-21] MEDS: gabapentin 300mg capsule PO SCH ×2 (07:55→20:28)
[2019-04-21] MEDS: vitamin D (cholecalciferol) 1,000 unit tablet PO SCH (07:56)
[2019-04-21] MEDS: amLODIPine 5mg tablet PO SCH (07:56)
[2019-04-21] MEDS: fluticasone nasal spray 16GM bottle NS SCH (07:57)
[2019-04-21] MEDS: enoxaparin 40mg/0.4ml syringe SUBCUT SCH (07:57)
[2019-04-21] MEDS: loratadine 10mg tablet PO SCH (08:01)
[2019-04-21] MEDS: budesonide 0.5mg/2ml UD nebule IH SCH ×2 (08:04→19:46)
[2019-04-21 11:00] VITALS: BP 140/58
[2019-04-21 18:00] VITALS: BP 162/51
--- NOTE | 2019-04-21 18:00 | NUR ---
Pt. sitting up in chair with at bedside. Pt. A & O. Denies pain at this time. Call light within reach. Addendum: 04/21/19 at 1844 by Sheila Mcgowan RN Amended: Links added.
--- NOTE | 2019-04-21 18:00 | NUR ---
Patient in room [facility] 347. I have received report from Diya DAVIDSON and had the opportunity to ask questions and assume patient care. Addendum: 04/22/19 at 0713 by Sheila Mcgowan RN Amended: Links added.
--- NOTE | 2019-04-21 18:25 | NUR ---
Problems reprioritized. Patient report given, questions answered & plan of care reviewed with STUART Sosa.
[2019-04-22] VITALS: BP 122/65
[2019-04-22] MEDS: albuterol 2.5 MG/3 ML nebule NEB SCH ×2 (04:57→07:56)
--- NOTE | 2019-04-22 06:00 | NUR ---
Problems reprioritized. Patient report given, questions answered & plan of care reviewed with Mejia DAVIDSON. Addendum: 04/22/19 at 0704 by Sheila Mcgowan RN Amended: Links added.
--- NOTE | 2019-04-22 06:58 | NUR ---
Patient in room [facility] 355. I have received report from SHYLA DAVIDSON and had the opportunity to ask questions and assume patient care.
[2019-04-22 07:14] LABS: BASOPHILS % (AUTO) 0.3 % (0-1); EOSINOPHILS # (AUTO) 0.7 X10'3 (0-0.9); EOSINOPHILS % (AUTO) 4.8 % (0-6); HEMATOCRIT 36.8 % (42.0-52.0); HEMOGLOBIN 12.4 g/dl (14.0-17.9); LYMPHOCYTES # (AUTO) 2.2 X10'3 (1.1-4.8); LYMPHOCYTES % (AUTO) 16.4 % (21-51); MEAN CORPUSCULAR HEMOGLOBIN 32.9 PG (27.0-31.0); MEAN CORPUSCULAR HGB CONC 33.7 g/dL (33.0-36.5); MEAN CORPUSCULAR VOLUME 97.6 FL (78-98); MEAN PLATELET VOLUME 9.5 FL (7.4-10.4); MONOCYTES # (AUTO) 1.8 X10'3 (0-0.9); MONOCYTES % (AUTO) 12.9 % (2-12); NEUTROPHILS % (AUTO) 65.6 % (42-75); PLATELET COUNT 213 X10'3 (140-440); RED BLOOD COUNT 3.77 X10'6 (4.70-6.10); RED CELL DISTRIBUTION WIDTH 15.6 % (11.5-14.5); WHITE BLOOD COUNT 13.7 X10'3 (4.5-11.0)
[2019-04-22 07:22] LABS: ALBUMIN 3.2 G/DL (3.4-5.0); ANION GAP 9 (8-16); BLOOD UREA NITROGEN 30 MG/DL (7-18); BUN/CREATININE RATIO 16.8 (5.4-32.0); CALCIUM 8.5 MG/DL (8.5-10.1); CHLORIDE 106 MMOL/L (99-107); CREATININE 1.79 MG/DL (0.60-1.10); GLUCOSE 108 MG/DL (70-104); SODIUM 139 MMOL/L (135-145); TOTAL CARBON DIOXIDE 24.4 MMOL/L (24-32); eGFR 38 ML/MIN
[2019-04-22 07:25] VITALS: BP 157/69
[2019-04-22] MEDS: budesonide 0.5mg/2ml UD nebule IH SCH (07:57)
[2019-04-22] MEDS: enoxaparin 40mg/0.4ml syringe SUBCUT SCH (08:00)
[2019-04-22] MEDS: ibuprofen tablet 400 MG TABLET PO SCH (08:50)
[2019-04-22] MEDS: loratadine 10mg tablet PO SCH (08:51)
[2019-04-22] MEDS: gabapentin 300mg capsule PO SCH (08:51)
[2019-04-22] MEDS: amLODIPine 5mg tablet PO SCH (08:51)
[2019-04-22] MEDS: vitamin D (cholecalciferol) 1,000 unit tablet PO SCH (08:52)
[2019-04-22] MEDS: fluticasone nasal spray 16GM bottle NS SCH (08:53)
[2019-04-22] MEDS: labetalol 100mg tablet PO SCH (08:53)
--- NOTE | 2019-04-22 13:45 | NUR ---
PATIENT DISCHARGED INTO CARE OF SPOUSE. PATIENT IS TO FOLLOW UP WITH WOUND CARE IN HOME [facility]OUGH [facility]. PATIENT LEFT WITH HOME WOUND VAC NO LEAKS AT DISCHARGE. PATIENT SETTINGS LOCKED AT 125mmHg. PATIENT LEFT WITH ALL OF HIS BELONGINGS AT THIS TIME. PATIENT WHEELED TO LOBBY AND TRANSPORTED HOME VIA PRIVATE VEHICLE. IV TAKEN OUT DURING DISCHARGE TEACHING
== END 2019-04-22 13:47 | disposition home health service (06) | DRG 330 ==
LOC: PAS IN 10:39 → EDSTATUS 14:15 → SUR 3N 16:21
PROVIDERS: ADMIT Surgery; ATTEND Surgery
PROC: BT141ZZ Fluoroscopy of Kidneys, Ureters and Bladder using Low Osmolar Contrast (ICD-10-PCS; 2019-04-18)
PROC: 0DNE0ZZ Release Large Intestine, Open Approach (ICD-10-PCS; 2019-04-18)
PROC: 0DN80ZZ Release Small Intestine, Open Approach (ICD-10-PCS; 2019-04-18)
PROC: 0DBM0ZZ Excision of Descending Colon, Open Approach (ICD-10-PCS; principal; 2019-04-18 12:30)
PROC: 0T9880Z Drainage of Bilateral Ureters with Drainage Device, Via Natural or Artificial Opening Endoscopic (ICD-10-PCS; 2019-04-18 12:30)
DX: Z43.3 Encounter for attention to colostomy (principal); C18.9 Malignant neoplasm of colon, unspecified; S36.439A Laceration of unspecified part of small intestine, initial encounter; R31.9 Hematuria, unspecified
CPT/HCPCS: 36415; 71046; 76000; 80048; 80053; 81001; 82948; 85025; 85610; 85730; 86885; 86900; 86901; 86920; 87081; 87088; 93005; 94640; 94760; A4618; A6407; A6449; A7000; C1758; C1769; G0378; J0131; J0694; J1100; J1650; J2250; J2405; J2704; J2710; J3010; J3480; J3490; J7120; J7626; Q9967